=== PATIENT | male | born 1970 | race Caucasian/White ===

== ENCOUNTER 2022-04-22 13:20 | Day surgery (SDC) | payer OTHER ==
[2022-04-22] MEDS ORDERED: Marcaine Mpf 0.5% Vial 30 Ml IJ ONE (13:21)
[2022-04-22] MEDS ORDERED: XYLOCAINE-MPF 1% 5ML SDV IJ ONE (13:21)
[2022-04-22] MEDS ORDERED: Depo-Medrol 40 MG/ML IM ONE (13:21)
--- NOTE | 2022-04-22 15:31 | XRAY ---
Indication: Right SI joint injection. Intraoperative fluoroscopy provided for 9 seconds. 2 digital spot image submitted for interpretation demonstrates posterior needle tip projecting over the inferior right SI joint. Correlate with intraoperative findings/report. Incidental partially visualized lumbosacral junction posterior fusion hardware.
--- NOTE | 2022-04-22 15:40 | XRAY ---
9 seconds fluoroscopy time in surgery for injection of the right SI joint.
== END 2022-04-22 14:47 | disposition home or self-care (01) ==
LOC: SDC-PAIN 13:20
PROVIDERS: ATTEND Psychiatry & Neurology Pain Medicine
DX: M46.1 Sacroiliitis, not elsewhere classified (principal); Z79.899 Other long term (current) drug therapy
CPT/HCPCS: 27096; 72170; 77002; G0260; J1030

== ENCOUNTER 2024-08-02 15:10 | Day surgery (SDC) | payer MEDICARE, SELFPAY ==
[2024-08-02] MEDS ORDERED: BUPIVACAINE 0.5% VIAL IJ ONE (15:11)
[2024-08-02] MEDS ORDERED: LIDOCAINE HCL 1% AMPUL 5 ML IJ ONE (15:11)
[2024-08-02] MEDS ORDERED: Depo-Medrol 40 MG/ML IM ONE (15:11)
--- NOTE | 2024-08-02 20:57 | XRAY ---
Indication: Right shoulder and subacromial bursa injection. Intraoperative fluoroscopy provided for 25 second. 3 digital spot image submitted for interpretation demonstrates needle tip projecting lateral to right glenohumeral joint superiorly. Second needle tip subacromial. Small amount of contrast injected for both needle tip placement.. Correlate with intraoperative findings/report.
--- NOTE | 2024-08-03 09:10 | XRAY ---
25 seconds of fluoroscopy was used in surgery for a right intra-articular shoulder and subacromial bursa injection.
== END 2024-08-02 18:15 ==
LOC: SDC-PAIN 15:10
PROVIDERS: ATTEND Psychiatry & Neurology Pain Medicine
DX: M19.011 Primary osteoarthritis, right shoulder (principal); M75.51 Bursitis of right shoulder
CPT/HCPCS: 20610; 73030; 77002; Q9966

== ENCOUNTER 2025-06-20 15:41 | Day surgery (SDC) | payer MEDICARE, SELFPAY ==
[2025-06-20] MEDS ORDERED: LIDOCAINE HCL 1% 50 MG/5 ML VL IJ ONE (15:42)
[2025-06-20] MEDS ORDERED: methylPREDNISolone acetate IM ONE (15:42)
[2025-06-20] MEDS ORDERED: BUPIVACAINE 0.5% VIAL IJ ONE (15:42)
--- NOTE | 2025-06-20 19:54 | XRAY ---
Indication: Left shoulder and subacromial bursa injection. Intraoperative fluoroscopy provided for 19 seconds. 3 digital spot images submitted for interpretation demonstrates needle tip projecting over left glenohumeral joint superiorly. Second needle tip subacromial. Small amount of contrast injected for needle tip placement. Correlate with intraoperative findings/report.
--- NOTE | 2025-06-21 10:57 | XRAY ---
19 seconds of fluoroscopy used in surgery for a left intra-articular shoulder injection and left subacromial bursa injection.
== END 2025-06-20 18:05 | disposition home or self-care (01) ==
LOC: SDC-PAIN 15:41
PROVIDERS: ATTEND Psychiatry & Neurology Pain Medicine
DX: M19.012 Primary osteoarthritis, left shoulder (principal); M75.52 Bursitis of left shoulder